=== PATIENT | male | born 2000 | race Caucasian/White ===

== ENCOUNTER 2020-05-10 16:39 | Emergency (ER) | payer MEDICAID ==
[2020-05-10] MEDS ORDERED: DIPH/PERTUSS(ACELL)/TETANUS VAC/PF 0.5 ML SYR (>=10YO) IM ONE (16:48)
[2020-05-10] MEDS ORDERED: FENTANYL CITRATE INJ/PF 100 MCG/2 ML AMPUL IV ONE (16:48)
[2020-05-10] MEDS ORDERED: NORMAL SALINE 1000 ML 1,000 ML IV ONE (16:50)
[2020-05-10] MEDS ORDERED: RINGERS SOLUTION,LACTATED 1,000 ML IV ONE (16:52)
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
[2020-05-10] MEDS: RINGERS SOLUTION,LACTATED 1,000 ML IV PRN ×2 (18:13→18:40)
[2020-05-10 19:43] VITALS: BP 122/76
== END 2020-05-10 19:40 | disposition short-term general hospital (02) ==
LOC: ER 16:39
DX: T21.22XA Burn of second degree of abdominal wall, initial encounter (principal); T21.26XA Burn of second degree of male genital region, initial encounter; T24.212A Burn of second degree of left thigh, initial encounter; T24.211A Burn of second degree of right thigh, initial encounter; X08.8XXA Exposure to other specified smoke, fire and flames, initial encounter; Y93.89 Activity, other specified; Z23 Encounter for immunization
CPT/HCPCS: 99285; 96361; 90471; 96375; 96365; 90715; J3010; J7030; J7120